=== PATIENT | female | born 1980 ===

== ENCOUNTER 2016-10-13 04:49 | Emergency (ER) | payer SELFPAY ==
[2016-10-13 05:02] VITALS: O2SAT 98
[2016-10-13 05:03] VITALS: RESP 20
--- NOTE | 2016-10-13 05:24 | C.PDOC ---
History Of Present Illness 36 year old female who presents to the ER with a complaint of back pain for the past 2 days that has worsened today. Patient states it became too painful to try to sleep which prompted visit. Patient states she has had chronic spinal problems for many years since she used to like in the [place] from the work she used to do. Patient has been taking motrin and tylenol with minimal relief to symptoms; denies radiation of pain, urinary symptoms, incontinence, weakness, or numbness. Time Seen by Provider: 10/13/16 05:12 Chief Complaint (Nursing): Back Pain History Per: Patient History/Exam Limitations: no limitations Onset/Duration Of Symptoms: Days Current Symptoms Are (Timing): Still Present Quality Of Discomfort: Unable To Describe Previous Symptoms: Chronic Pain Associated Symptoms: None Exacerbating Factor(s): Movement Recent travel outside of the [place]: No Past Medical History Reviewed: Historical Data, Nursing Documentation, Vital Signs Vital Signs: Last Vital Signs Temp 97.5 F L 10/13/16 04:57 Pulse 84 10/13/16 04:57 Resp 20 10/13/16 05:03 BP 119/70 10/13/16 05:03 Pulse Ox 98 10/13/16 05:31 - Medical History PMH: Back Problems Surgical History: No Surg Hx Family History: States: Unknown Family Hx - Social History Hx Alcohol Use: No Hx Substance Use: No - Immunization History Hx Tetanus Toxoid Vaccination: No Hx Influenza Vaccination: No Hx Pneumococcal Vaccination: No Review Of Systems Gastrointestinal: Negative for: Abdominal Pain Genitourinary: Negative for: Dysuria, Incontinence, Hematuria Musculoskeletal: Positive for: Back Pain. Negative for: Leg Pain Neurological: Negative for: Weakness, Numbness Physical Exam - Physical Exam Appears: Non-toxic, Other (Moderate painful distress) Skin: Normal Color, Warm, Dry Head: Atraumatic, Normacephalic Oral Mucosa: Moist Neck: Normal, Normal ROM, Supple Chest: Symmetrical Cardiovascular: Rhythm Regular, No Murmur Respiratory: Normal Breath Sounds, No Rhonchi, No Wheezing Gastrointestinal/Abdominal: Soft, No Tenderness, No Mass, No Distention, No Guarding, No Rebound Back: Normal Inspection, No CVA Tenderness, No Vertebral Tenderness, Paraspinal Tenderness (Thoracic/Lumbar), Straight Leg Raising (normal) Extremity: Normal ROM (x4), No Tenderness, No Pedal Edema, Capillary Refill ( normal), No Deformity, No Swelling Pulses: Left Dorsalis Pedis: Normal, Right Dorsalis Pedis: Normal Neurological/Psych: Oriented x3, Normal Speech, Normal Cognition, Normal Cranial Nerves, Normal Motor, Normal Sensation ED Course And Treatment O2 Sat by Pulse Oximetry: 98 (Room air) Pulse Ox Interpretation: Normal Medical Decision Making Medical Decision Makin36 year old female who presents to the ER with a complaint of back pain for the past 2 days. Plan: * Flexeril * Toradol * Ultram On re-evaluation, pt reports significant improvement of pain. Pt given Rx and advised to take as prescribed. Otherwise, advised to f/u with the clinic in 2 days for re-evaluation, instructed to return to the ER at any time for any new or worsening symptoms. Pt verbalize understanding of d/c instruction and states that she will f/u as advised. Disposition Counseled Patient/Family Regarding: Diagnosis, Need For Followup, Rx Given - Disposition Referrals: [facility] [Outside] Disposition: HOME/ ROUTINE Disposition Time: 06:00 Condition: IMPROVED Additional Instructions: Follow up with the clinic in 2 days for re-evaluation. Take medication as prescribed. Return to the ER at any time for any new or worsening symptoms. Prescriptions: Cyclobenzaprine [Cyclobenzaprine HCl] 10 mg PO TID PRN #15 tab PRN Reason: Muscle Spasm Meloxicam [Mobic] 15 mg PO DAILY PRN #20 tab PRN Reason: Pain, Moderate (4-7) Instructions: Acute Low Back Pain (ED) Forms: [facility] (Slovak), Work Excuse Print Language: AFGHAN - Clinical Impression Clinical Impression: Low back pain - PA / BI DATA MODELER / Resident Statement MD/DO has reviewed & agrees with the documentation as recorded. - Scribe Statement The provider has reviewed the documentation as recorded by the Scribe Clyde Gutierrez All medical record entries made by the Michellibclaire were at my direction and personally dictated by me. I have reviewed the chart and agree that the record accurately reflects my personal performance of the history, physical exam, medical decision making, and the department course for this patient. I have also personally directed, reviewed, and agree with the discharge instructions and disposition.
[2016-10-13 06:08] VITALS: BP 120/71; PULSE 82; TEMP 97.1
== END 2016-10-13 06:08 | disposition home or self-care (01) ==
LOC: C.ER 04:49
DX: M54.5 Low back pain (principal)
CPT/HCPCS: 96372; 99284; J1885

== ENCOUNTER 2017-01-20 08:47 | Emergency (ER) | payer OTHER ==
[2017-01-20 08:55] VITALS: TEMP 98.1
[2017-01-20] MEDS ORDERED: Albuterol-Ipratrop 3 mg / 0.5 (3 ml) UD ONE ×2 (09:25→09:39)
--- NOTE | 2017-01-20 09:29 | C.PDOC ---
History Of Present Illness 36 y/o female, with PMHx of asthma, presents to ED c/o cough, runny nose, headache, generalized weakness, and body aches. Pt states that she ran out of her Albuterol pump. Denies fever, chills, sore throat, ear pain, nausea, vomiting, or abdominal pain. Time Seen by Provider: 01/20/17 09:21 Chief Complaint (Nursing): Shortness Of Breath History Per: Patient History/Exam Limitations: no limitations Onset/Duration Of Symptoms: Days Current Symptoms Are (Timing): Still Present Associated Symptoms: denies: Sweating, Chest Pain, Bloody Cough, Heart Racing, Ankle/Leg Swelling, Dizziness Recent travel outside of the [place]: No Additional History Per: Patient Past Medical History Reviewed: Historical Data, Nursing Documentation, Vital Signs Vital Signs: Last Vital Signs Temp 98.1 F 01/20/17 08:55 Pulse 96 H 01/20/17 10:20 Resp 20 01/20/17 10:20 BP 124/80 01/20/17 10:20 Pulse Ox 99 01/20/17 10:44 - Medical History PMH: Asthma, Back Problems Family History: States: Unknown Family Hx - Social History Hx Alcohol Use: No Hx Substance Use: No - Immunization History Hx Tetanus Toxoid Vaccination: No Hx Influenza Vaccination: No Hx Pneumococcal Vaccination: No Review Of Systems Except As Marked, All Systems Reviewed And Found Negative. Constitutional: Positive for: Weakness, Other (body aches). Negative for: Fever , Chills ENT: Positive for: Nose Discharge (runny nose) Respiratory: Positive for: Cough. Negative for: Shortness of Breath Gastrointestinal: Negative for: Nausea, Vomiting, Abdominal Pain Neurological: Positive for: Headache. Negative for: Dizziness Physical Exam - Physical Exam Appears: Non-toxic, Other (ill appearing) Skin: Normal Color, Warm, Dry Head: Atraumatic, Normacephalic Eye(s): bilateral: Other (watery eyes) Ear(s): Bilateral: Normal Nose: Discharge (clear rhinorrhea) Oral Mucosa: Moist Tongue: Normal Appearing Lips: Normal Appearing Throat: Normal, No Erythema, No Exudate, No Drooling Neck: Normal ROM, Supple Cardiovascular: Rhythm Regular, No Murmur Respiratory: Normal Breath Sounds, No Rales, No Rhonchi, No Wheezing, Other ( persistent coughing) Gastrointestinal/Abdominal: Soft, No Tenderness Extremity: Normal ROM Neurological/Psych: Oriented x3, Normal Speech ED Course And Treatment O2 Sat by Pulse Oximetry: 99 Pulse Ox Interpretation: Normal Medical Decision Making Medical Decision Making: Persistent cough is variant of asthma. Patient was given Claritin, Tylenol, Prednisone, and Albuterol treatment. Pt is being discharged home with Rx. Disposition Counseled Patient/Family Regarding: Diagnosis, Need For Followup, Rx Given - Disposition Disposition: HOME/ ROUTINE Disposition Time: 10:39 Condition: STABLE Additional Instructions: Tienes un sndrome viral y astma. Jagual las medicinas gunnar son indicadas. . Jagual Motrin o Tylenol para el dolor o la fiebre. beber lquidos en abundancia Descanse extra. Hannah un seguimiento con day mdico. Prescriptions: Albuterol HFA [Ventolin HFA 90 mcg/actuation (8 g)] 1 puff IH QID PRN #1 puff PRN Reason: Cough Loratadine [Claritin] 10 mg PO DAILY #10 tab Oseltamivir Phosphate [Tamiflu] 75 mg PO DAILY #5 capsule Prednisone [Deltasone] 60 mg PO DAILY #12 tablet Instructions: Asthma (ED) Forms: Gen Discharge Inst Cuban, [employer] (Cuban), Work Excuse - POA Present On Arrival: None - Clinical Impression Clinical Impression: Asthma, Influenza-like syndrome - Scribe Statement The provider has reviewed the documentation as recorded by the Michellibclaire Cerda All medical record entries made by the Scribe were at my direction and personally dictated by me. I have reviewed the chart and agree that the record accurately reflects my personal performance of the history, physical exam, medical decision making, and the department course for this patient. I have also personally directed, reviewed, and agree with the discharge instructions and disposition.
[2017-01-20] MEDS: Albuterol-Ipratrop 3 mg / 0.5 (3 ml) UD IH SCH ×3 (09:35→10:14)
[2017-01-20 10:21] VITALS: BP 124/80; PULSE 96; RESP 20
[2017-01-20 10:43] VITALS: O2SAT 99
== END 2017-01-20 11:10 | disposition home or self-care (01) ==
LOC: C.ER 08:47
DX: J11.1 Influenza due to unidentified influenza virus with other respiratory manifestations (principal); J45.909 Unspecified asthma, uncomplicated